=== PATIENT | female | born 1995 | race Caucasian/White ===

== ENCOUNTER → 2017-04-02 | Outpatient (REF) | payer OTHER ==
[2017-04-02 14:54] LABS: INFLUENZA A AMPLIFICATION NEGATIVE (NEGATIVE); INFLUENZA B AMPLIFICATION NEGATIVE (NEGATIVE)
[2017-04-02 18:07] LABS: CONTROL LINE MONO INT CTR LINE PRESENT; MONO SCRN POSITIVE (NEGATIVE)
== END ==
LOC: M LAB REF 13:25
DX: R50.9 Fever, unspecified (principal); J06.9 Acute upper respiratory infection, unspecified

== ENCOUNTER 2017-04-07 14:55 | Emergency (ER) | payer BC, OTHER ==
[2017-04-07] MEDS: dexameTHASONE 20 MG/5 ML VIAL (J1100) IV (15:56)
[2017-04-07] MEDS: NS 1,000 ML IV (15:57)
[2017-04-07 16:08] LABS: HEMATOCRIT 37.5 % (36.0-47.0); HEMOGLOBIN 13.6 g/dl (12.0-16.0); MEAN CORPUSCULAR HEMOGLOBIN 31.3 pg (27.0-33.0); MEAN CORPUSCULAR HGB CONC 36.3 g/dl (32.0-36.5); MEAN CORPUSCULAR VOLUME 86.4 fl (80.0-96.0); PLATELET COUNT, AUTOMATED 128 10^3/uL (150-450); POSITIVE DIFF POS FLAG; POSITIVE MORPH POS FLAG; RED BLOOD COUNT 4.34 10^6/uL (4.00-5.40); RED CELL DISTRIBUTION WIDTH 12.2 % (11.5-14.5); WHITE BLOOD COUNT 12.8 10^3/uL (4.0-10.0)
[2017-04-07 16:10] LABS: ADD MANUAL DIFFER YES; DIFF SLIDE NUMBER 269
[2017-04-07 16:24] LABS: ANION GAP 6 MEQ/L (8-16); BLOOD UREA NITROGEN 5 MG/DL (7-18); C REACTIVE PROTEIN QUANTITATIV 2.38 MG/DL (0.00-0.30); CALCIUM LEVEL 8.8 MG/DL (8.5-10.1); CARBON DIOXIDE LEVEL 27 MEQ/L (21-32); CHLORIDE LEVEL 103 MEQ/L (98-107); CREATININE FOR GFR 0.73 MG/DL (0.55-1.30); GLOMERULAR FILTRATION RATE > 60.0 (>60); GLUCOSE, FASTING 123 MG/DL (70-100); POTASSIUM SERUM 3.8 MEQ/L (3.5-5.1); SODIUM LEVEL 136 MEQ/L (136-145)
[2017-04-07] MEDS ORDERED: ISOVUE-370 76% 100ML VIAL (Q9967) As Ordered (16:32)
[2017-04-07 16:43] LABS: ERYTHROCYTE SEDIMENTATION RATE 30 mm/hr (0-20)
[2017-04-07 16:46] LABS: ATYPICAL LYMPH 27 % (0-5); BANDS 2 % (< 11); LYMPHOCYTES 31 % (16-52); MONOCYTES 7 % (0-8); NEUTROPHILS 33 % (35-75)
[2017-04-07 16:48] LABS: PLATELET CLUMPS SMALL AMT; PLATELET ESTIMATE DECREASED (NORMAL)
== END 2017-04-07 18:23 | disposition home or self-care (01) ==
LOC: M ED 14:55
DX: R60.1 Generalized edema (principal); B27.90 Infectious mononucleosis, unspecified without complication; F41.9 Anxiety disorder, unspecified; Z79.899 Other long term (current) drug therapy
CPT/HCPCS: J1100

== ENCOUNTER 2017-04-12 14:48 | Emergency (ER) | payer BC, OTHER ==
[2017-04-12 15:59] LABS: HEMATOCRIT 39.7 % (36.0-47.0); HEMOGLOBIN 13.8 g/dl (12.0-16.0); MEAN CORPUSCULAR HEMOGLOBIN 30.8 pg (27.0-33.0); MEAN CORPUSCULAR HGB CONC 34.8 g/dl (32.0-36.5); MEAN CORPUSCULAR VOLUME 88.6 fl (80.0-96.0); PLATELET COUNT, AUTOMATED 224 10^3/uL (150-450); RED BLOOD COUNT 4.48 10^6/uL (4.00-5.40); RED CELL DISTRIBUTION WIDTH 12.4 % (11.5-14.5); WHITE BLOOD COUNT 10.8 10^3/uL (4.0-10.0)
[2017-04-12] MEDS: NS 1,000 ML IV (16:00)
[2017-04-12] MEDS: FAMOTIDINE IV BAG 20 MG in APPROPRIATE DILUENT 1 EA IV (16:00)
[2017-04-12] MEDS: methylPREDNISolone INJ 125 MG/2 ML VIAL (J2930) IV (16:00)
[2017-04-12] MEDS: diphenhydrAMINE INJ 50MG/ML VIAL (J1200) IV (16:00)
[2017-04-12] MEDS: ACETAMINOPHEN TAB 650MG DOSE (2X325MG) PO (16:00)
[2017-04-12 16:01] LABS: ADD MANUAL DIFFER YES; DIFF SLIDE NUMBER 260; POSITIVE DIFF POS FLAG; POSITIVE MORPH POS FLAG
[2017-04-12 16:23] LABS: ATYPICAL LYMPH 10 % (0-5); EOSINOPHILS 2 % (0-5); LYMPHOCYTES 35 % (16-52); MONOCYTES 2 % (0-8); NEUTROPHILS 51 % (35-75)
[2017-04-12 16:24] LABS: ALBUMIN 3.5 GM/DL (3.2-5.2); ALBUMIN/GLOBULIN RATIO 0.74 (1.00-1.93); ALKALINE PHOSPHATASE 112 U/L (45-117); ALT/SGPT 77 U/L (12-78); ANION GAP 8 MEQ/L (8-16); AST/SGOT 34 U/L (7-37); BILIRUBIN,DIRECT 0.1 MG/DL (0.0-0.2); BILIRUBIN,TOTAL 0.4 MG/DL (0.2-1.0); BLOOD UREA NITROGEN 11 MG/DL (7-18); CALCIUM LEVEL 8.8 MG/DL (8.5-10.1); CARBON DIOXIDE LEVEL 28 MEQ/L (21-32); CHLORIDE LEVEL 102 MEQ/L (98-107); CREATININE FOR GFR 0.74 MG/DL (0.55-1.30); GLOMERULAR FILTRATION RATE > 60.0 (>60); GLUCOSE, FASTING 93 MG/DL (70-100); PLATELET ESTIMATE NORMAL (NORMAL); POTASSIUM SERUM 3.3 MEQ/L (3.5-5.1); SODIUM LEVEL 138 MEQ/L (136-145); TOTAL PROTEIN 8.2 GM/DL (6.4-8.2)
== END 2017-04-12 17:19 | disposition home or self-care (01) ==
LOC: M ED 14:48
DX: B27.99 Infectious mononucleosis, unspecified with other complication (principal); J35.1 Hypertrophy of tonsils; I10 Essential (primary) hypertension; Z79.52 Long term (current) use of systemic steroids; Z79.2 Long term (current) use of antibiotics; Z79.899 Other long term (current) drug therapy; Z87.09 Personal history of other diseases of the respiratory system
CPT/HCPCS: J1200

== ENCOUNTER → 2019-12-15 | Outpatient (REF) | payer OTHER ==
[~2019-12-15] MED LIST: AMOX875T2 PO; FERR325T3 PO; FLUO10CA16 PO; HYDR25TAB PO; LEVOTAB18 PO; MAGICMW SSP; PRED20TA PO
[2019-12-15 16:49] LABS: TOTAL PROTEIN 7.8 GM/DL (6.4-8.2)
[2019-12-18 10:42] LABS: ALBUMIN 4.26 GM/DL (3.29-5.55); ALBUMIN % 54.6 % (55.8-66.1); ALPHA-1-GLOBULIN % 4.1 % (2.9-4.9); ALPHA-1-GLOBULINS 0.32 GM/DL (0.17-0.41); ALPHA-2-GLOBULINS 0.72 GM/DL (0.42-0.99); ALPHA-2-GLOBULINS % 9.2 % (7.1-11.8); BETA-1-GLOBULINS 0.57 GM/DL (0.28-0.60); BETA-1-GLOBULINS % 7.3 % (4.7-7.2); BETA-2-GLOBULINS 0.41 GM/DL (0.19-0.55); BETA-2-GLOBULINS % 5.3 % (3.2-6.5); GAMMA GLOBULIN % 19.5 % (11.1-18.8); GAMMA GLOBULINS 1.52 GM/DL (0.65-1.58)
== END ==
LOC: M LAB REF 16:18
PROVIDERS: ATTEND Nurse Practitioner Adult Health
DX: I12.9 Hypertensive chronic kidney disease with stage 1 through stage 4 chronic kidney disease, or unspecified chronic kidney disease (principal)

== ENCOUNTER → 2023-03-02 | Outpatient (CLI) | payer BC ==
[~2023-03-02] MED LIST changes: -FLUO10CA16 PO; +FLUO10CA18 PO; +HYDR-3490 PO; -HYDR25TAB PO
[2023-03-02 13:50] LABS: HEMATOCRIT 37.7 % (36.0-47.0); HEMOGLOBIN 12.7 g/dl (12.0-15.5); MEAN CORPUSCULAR HGB CONC 33.7 g/dl (32.0-36.5); MEAN CORPUSCULAR VOLUME 88.9 fl (80.0-96.0); PLATELET COUNT, AUTOMATED 292 10^3/uL (150-450); RED BLOOD COUNT 4.24 10^6/uL (4.00-5.40); WHITE BLOOD COUNT 11.9 10^3/uL (4.0-10.0)
[2023-03-02 13:58] LABS: ALT/SGPT 25 U/L (7.0-40); AST/SGOT 20 U/L (<34); BILIRUBIN,TOTAL 0.4 MG/DL (0.3-1.2); CREATININE FOR GFR 0.56 MG/DL (0.55-1.30); GLOMERULAR FILTRATION RATE > 60.0 (>60); LDH LACTATE DEHYDROGENASE 207 U/L (120-246)
[2023-03-02 14:18] LABS: CREATININE,RANDOM URINE 53.8 MG/DL
[2023-03-02 14:19] LABS: TOTAL PROTEIN,RANDOM URINE < 6.0 MG/DL (0.0-14.0)
[2023-03-02 14:31] LABS: HIV 1&2 SCREEN NEGATIVE (NEGATIVE)
[2023-03-02 14:40] LABS: HEPATITIS C VIRUS ABY INDEX 0.03 INDEX (<0.8)
[2023-03-02 15:25] LABS: CHLAMYDIA DNA AMPLIFICATION NEGATIVE (NEGATIVE); GC DNA AMPLIFICATION NEGATIVE (NEGATIVE)
[2023-03-02 16:50] LABS: URIC ACID 5.3 MG/DL (3.1-7.8)
== END ==
LOC: M PLALAB 10:37
PROVIDERS: ATTEND Advanced Practice Midwife
DX: O10.011 Pre-existing essential hypertension complicating pregnancy, first trimester (principal); Z3A.00 Weeks of gestation of pregnancy not specified

== ENCOUNTER → 2023-03-31 | Outpatient (CLI) | payer BC | LOC: M PLALAB 08:30 | PROVIDERS: ATTEND Specialist | DX: Z34.82 Encounter for supervision of other normal pregnancy, second trimester (principal); Z3A.00 Weeks of gestation of pregnancy not specified ==

== ENCOUNTER → 2023-04-23 | Outpatient (CLI) | payer BC | LOC: M PLALAB 09:43 | PROVIDERS: ATTEND Advanced Practice Midwife | DX: Z34.82 Encounter for supervision of other normal pregnancy, second trimester (principal) ==

== ENCOUNTER → 2023-04-23 | Outpatient (CLI) | payer BC | LOC: M WHC 09:13 | PROVIDERS: ATTEND Advanced Practice Midwife | DX: Z53.9 Procedure and treatment not carried out, unspecified reason (principal) ==

== ENCOUNTER → 2023-05-11 | Outpatient (CLI) | payer BC | LOC: M WHC 07:54 | PROVIDERS: ATTEND Advanced Practice Midwife | DX: O10.012 Pre-existing essential hypertension complicating pregnancy, second trimester (principal); Z3A.19 19 weeks gestation of pregnancy; O32.1XX0 Maternal care for breech presentation, not applicable or unspecified ==

== ENCOUNTER → 2023-06-04 | Outpatient (CLI) | payer BC | LOC: M WHC 07:42 | PROVIDERS: ATTEND Advanced Practice Midwife | DX: Z34.02 Encounter for supervision of normal first pregnancy, second trimester (principal) ==

== ENCOUNTER → 2023-06-25 | Outpatient (CLI) | payer BC ==
[~2023-06-25] MED LIST changes: +FLUO-290 PO; -FLUO10CA18 PO
[2023-06-25 12:45] LABS: ALKALINE PHOSPHATASE 91 U/L (46-116); ALT/SGPT 48 U/L (7.0-40); AST/SGOT 38 U/L (<34); BILIRUBIN,TOTAL 0.3 MG/DL (0.3-1.2); BLOOD UREA NITROGEN 7 MG/DL (9-23); CALCIUM LEVEL 9.7 MG/DL (8.5-10.1); CARBON DIOXIDE LEVEL 26 MMOL/L (20-31); CHLORIDE LEVEL 106 MMOL/L (98-107); CREATININE FOR GFR 0.68 MG/DL (0.55-1.30); GLOMERULAR FILTRATION RATE > 60.0 (>60); GLUCOSE, FASTING 82 MG/DL (60-100); SODIUM LEVEL 140 MMOL/L (136-145); TOTAL PROTEIN 6.8 G/DL (5.7-8.2)
[2023-06-25 13:07] LABS: CREATININE,RANDOM URINE 23.6 MG/DL
[2023-06-25 13:12] LABS: TOTAL PROTEIN,RANDOM URINE < 6.0 MG/DL (0.0-14.0)
== END ==
LOC: M PLALAB 10:18
PROVIDERS: ATTEND Obstetrics & Gynecology
DX: O10.012 Pre-existing essential hypertension complicating pregnancy, second trimester (principal)

== ENCOUNTER → 2023-06-29 | Outpatient (CLI) | payer BC ==
[2023-06-29 13:50] LABS: HEMATOCRIT 30.3 % (36.0-47.0); HEMOGLOBIN 9.8 g/dl (12.0-15.5); MEAN CORPUSCULAR HGB CONC 32.3 g/dl (32.0-36.5); MEAN CORPUSCULAR VOLUME 95.9 fl (80.0-96.0); PLATELET COUNT, AUTOMATED 293 10^3/uL (150-450); RED BLOOD COUNT 3.16 10^6/uL (4.00-5.40); WHITE BLOOD COUNT 13.4 10^3/uL (4.0-10.0)
[2023-06-29 13:52] LABS: ALKALINE PHOSPHATASE 89 U/L (46-116); ALT/SGPT 35 U/L (7.0-40); AST/SGOT 32 U/L (<34); BILIRUBIN,TOTAL 0.3 MG/DL (0.3-1.2); BLOOD UREA NITROGEN 5 MG/DL (9-23); CALCIUM LEVEL 9.1 MG/DL (8.5-10.1); CARBON DIOXIDE LEVEL 25 MMOL/L (20-31); CHLORIDE LEVEL 107 MMOL/L (98-107); CREATININE FOR GFR 0.65 MG/DL (0.55-1.30); GLOMERULAR FILTRATION RATE > 60.0 (>60); GLUCOSE, FASTING 83 MG/DL (60-100); POTASSIUM SERUM 3.8 MMOL/L (3.5-5.1); SODIUM LEVEL 139 MMOL/L (136-145); TOTAL PROTEIN 6.6 G/DL (5.7-8.2)
[2023-06-29 14:03] LABS: CREATININE,RANDOM URINE 28.2 MG/DL
[2023-06-29 14:08] LABS: TOTAL PROTEIN,RANDOM URINE < 6.0 MG/DL (0.0-14.0)
== END ==
LOC: M PLALAB 10:48
PROVIDERS: ATTEND Obstetrics & Gynecology
DX: O10.919 Unspecified pre-existing hypertension complicating pregnancy, unspecified trimester (principal)

== ENCOUNTER → 2023-07-06 | Outpatient (CLI) | payer BC ==
[2023-07-06 12:13] LABS: MEAN CORPUSCULAR HEMOGLOBIN 31.6 pg (27.0-33.0); MEAN CORPUSCULAR HGB CONC 32.1 g/dl (32.0-36.5); MEAN CORPUSCULAR VOLUME 98.2 fl (80.0-96.0); PLATELET COUNT, AUTOMATED 242 10^3/uL (150-450); RED BLOOD COUNT 2.85 10^6/uL (4.00-5.40); WHITE BLOOD COUNT 11.8 10^3/uL (4.0-10.0)
== END ==
LOC: M PLALAB 08:06
PROVIDERS: ATTEND Advanced Practice Midwife
DX: Z34.02 Encounter for supervision of normal first pregnancy, second trimester (principal)

== ENCOUNTER → 2023-08-06 | Outpatient (CLI) | payer BC ==
[2023-08-06 11:15] LABS: HEMATOCRIT 29.7 % (36.0-47.0); HEMOGLOBIN 9.8 g/dl (12.0-15.5); MEAN CORPUSCULAR HEMOGLOBIN 33.1 pg (27.0-33.0); MEAN CORPUSCULAR VOLUME 100.3 fl (80.0-96.0); PLATELET COUNT, AUTOMATED 225 10^3/uL (150-450); RED BLOOD COUNT 2.96 10^6/uL (4.00-5.40); WHITE BLOOD COUNT 11.9 10^3/uL (4.0-10.0)
== END ==
LOC: M PLALAB 08:18
PROVIDERS: ATTEND Advanced Practice Midwife
DX: O99.019 Anemia complicating pregnancy, unspecified trimester (principal)

== ENCOUNTER 2023-08-16 12:58 | Outpatient (CLI) | payer BC ==
[~2023-08-16] VITALS: Ht 170.2 cm; Wt 101.2 kg
[2023-08-16] MEDS ORDERED: LABE300T28 PO (13:16)
[2023-08-16] MEDS ORDERED: BUSP5TA PO (13:19)
[2023-08-16 13:22] VITALS: BP 114/76
[2023-08-16 13:50] VITALS: BP 126/72
[2023-08-16] MEDS ORDERED: HOME MED LIST COMPLETE! XX SCH (14:35)
[2023-08-16 15:11] VITALS: BP 135/91
== END 2023-08-16 15:30 | disposition home or self-care (01) ==
LOC: M LDO 12:58
PROVIDERS: ATTEND Advanced Practice Midwife
DX: O36.8332 Maternal care for abnormalities of the fetal heart rate or rhythm, third trimester, fetus 2 (principal); O10.013 Pre-existing essential hypertension complicating pregnancy, third trimester; O99.343 Other mental disorders complicating pregnancy, third trimester; F41.9 Anxiety disorder, unspecified; O99.013 Anemia complicating pregnancy, third trimester; E50.9 Vitamin A deficiency, unspecified; Z3A.32 32 weeks gestation of pregnancy
CPT/HCPCS: 59025; 76816; 76819; 76820; G0463

== ENCOUNTER 2023-08-24 10:36 | Outpatient (CLI) | payer BC ==
[~2023-08-24] VITALS: Ht 170.2 cm; Wt 103.1 kg
[~2023-08-24 10:36] MED LIST changes: +BUSP5TA PO; +LABE300T28 PO
[2023-08-24] MEDS ORDERED: PRENTAB9 PO (11:14)
[2023-08-24] MEDS ORDERED: HOME MED LIST COMPLETE! XX SCH (11:20)
[2023-08-24] MEDS ORDERED: IRON SUCROSE 100MG 5ML VIAL IV SCH (11:40)
[2023-08-24 11:43] VITALS: BP 122/64
[2023-08-24] MEDS: IRON SUCROSE 100 MG in NS 95 ML IV ONE (12:37)
[2023-08-24 12:41] VITALS: BP 141/78
== END 2023-08-24 15:14 | disposition home or self-care (01) ==
LOC: M LDO 10:36
PROVIDERS: ATTEND Specialist
DX: O10.013 Pre-existing essential hypertension complicating pregnancy, third trimester (principal); O36.8339 Maternal care for abnormalities of the fetal heart rate or rhythm, third trimester, other fetus; O99.013 Anemia complicating pregnancy, third trimester; D50.9 Iron deficiency anemia, unspecified; Z3A.34 34 weeks gestation of pregnancy
CPT/HCPCS: 59025; 76815; 76819; 76820; G0463; J1756

== ENCOUNTER → 2023-08-30 | Outpatient (CLI) | payer BC ==
[~2023-08-30] MED LIST changes: +PRENTAB9 PO
== END ==
LOC: M WHC 09:29
PROVIDERS: ATTEND Obstetrics & Gynecology
DX: O10.913 Unspecified pre-existing hypertension complicating pregnancy, third trimester (principal)

== ENCOUNTER → 2023-09-06 | Outpatient (REF) | payer BC | LOC: M SFHCWAGY 10:00 | PROVIDERS: ATTEND Obstetrics & Gynecology | DX: Z3A.35 35 weeks gestation of pregnancy (principal) ==

== ENCOUNTER → 2023-09-06 | Outpatient (CLI) | payer BC | LOC: M WHC 07:22 | PROVIDERS: ATTEND Obstetrics & Gynecology | DX: O10.913 Unspecified pre-existing hypertension complicating pregnancy, third trimester (principal); Z3A.35 35 weeks gestation of pregnancy ==

== ENCOUNTER → 2023-09-09 | Outpatient (CLI) | payer BC ==
[~2023-09-09] MED LIST changes: +ACET-683 PO; +COLA100C5 PO; +IBUP-1022 PO; +OXYC-517 PO
== END ==
LOC: M RAD 08:09
PROVIDERS: ATTEND Obstetrics & Gynecology
DX: O10.913 Unspecified pre-existing hypertension complicating pregnancy, third trimester (principal); Z3A.36 36 weeks gestation of pregnancy

== ENCOUNTER 2023-09-14 07:30 | Inpatient (IN) | payer BC ==
[~2023-09-14] VITALS: Ht 167.6 cm; Wt 105.0 kg
[2023-09-14] VITALS (12 sets, daily range): BP systolic 134–149; BP diastolic 69–93
[~2023-09-14 07:30] MED LIST changes: -ACET-683 PO; -COLA100C5 PO; -IBUP-1022 PO; -OXYC-517 PO
[2023-09-14] MEDS ORDERED: PENICILLIN G POTASSIUM 5 MU IV 5 MU in D5W MINI-BAG PLUS 100 ML IV STA (08:02)
[2023-09-14] MEDS ORDERED: OXYTOCIN DRIP 30 UNITS in IV 1 EA IV PRN (08:05)
[2023-09-14] MEDS ORDERED: CARBOPROST TROMETHAMINE 250 MCG/ML AMP IM PRN (08:05)
[2023-09-14] MEDS ORDERED: TRANEXAMIC ACID INJection 1,000 MG in NS 100 ML IV PRN (08:05)
[2023-09-14] MEDS ORDERED: LIDOCAINE 1% MDV 20ML VIAL INFIL PRN (08:05)
[2023-09-14 08:38] LABS: HEMATOCRIT 29.8 % (36.0-47.0); HEMOGLOBIN 10.1 g/dl (12.0-15.5); MEAN CORPUSCULAR HEMOGLOBIN 34.4 pg (27.0-33.0); MEAN CORPUSCULAR HGB CONC 33.9 g/dl (32.0-36.5); MEAN CORPUSCULAR VOLUME 101.4 fl (80.0-96.0); PLATELET COUNT, AUTOMATED 210 10^3/uL (150-450); RED BLOOD COUNT 2.94 10^6/uL (4.00-5.40); WHITE BLOOD COUNT 10.3 10^3/uL (4.0-10.0)
[2023-09-14] MEDS: miSOPROStol 50MCG 1/2 TABLET PO SCH (08:53)
[2023-09-14 08:57] LABS: URIC ACID 5.8 MG/DL (3.1-7.8)
[2023-09-14 08:59] LABS: LDH LACTATE DEHYDROGENASE 227 U/L (120-246)
[2023-09-14 09:00] LABS: ALT/SGPT 20 U/L (7.0-40); AST/SGOT 31 U/L (<34); BILIRUBIN,TOTAL 0.4 MG/DL (0.3-1.2); CREATININE FOR GFR 0.72 MG/DL (0.55-1.30); GLOMERULAR FILTRATION RATE > 60.0 (>60)
[2023-09-14 09:39] LABS: HEPATITIS C VIRUS ABY INDEX < 0.02 INDEX (<0.8)
[2023-09-14] MEDS ORDERED: PEN G POT 3,000,000 UNIT/50 ML 3,000,000 UNIT in IV 1 EA IV SCH (12:05)
[2023-09-14] MEDS: LABETALOL 100MG TAB PO SCH (16:16)
[2023-09-14] MEDS: busPIRone 10 MG TAB PO SCH (16:41)
[2023-09-14] MEDS: FERROUS SULFATE 325MG TAB PO SCH (21:56)
[2023-09-15] VITALS (21 sets, daily range): BP systolic 116–148; BP diastolic 62–86; TEMP 97.9; O2SAT 94–95
[2023-09-15] MEDS: LR 1,000 ML IV SCH (09:52)
[2023-09-15] MEDS: OXYTOCIN DRIP 30 UNITS in IV 1 EA IV SCH ×2 (10:27→21:26)
[2023-09-15] MEDS: PENICILLIN G POTASSIUM 5 MU IV 5 MU in D5W MINI-BAG PLUS 100 ML IV STA (14:07)
[2023-09-15] MEDS ORDERED: PEN G POT 3,000,000 UNIT/50 ML 3,000,000 UNIT in IV 1 EA IV SCH (18:00)
[2023-09-15] MEDS: AZITHROMYCIN INJ 500 MG, VIAL MATE ADAPTER 1 EACH in NS 250 ML IV ONE (18:50)
[2023-09-15] MEDS: BICITRA 30ML SOLN UDC PO ONE (19:09)
[2023-09-15] MEDS: LACTATED RINGER'S 1000 ML IV STA (19:10)
[2023-09-15] MEDS: ceFAZolin SOD 2 GM in IV 1 EA IV ONE (19:10)
[2023-09-15] MEDS ORDERED: ONDANSETRON 4MG 2ML VIAL As Ordered ONE (19:33)
[2023-09-15] MEDS ORDERED: KETOROLAC 60MG 2ML VIAL As Ordered ONE (19:33)
[2023-09-15] MEDS ORDERED: MORPHINE PRES-FREE INJ 10 MG/10 ML VIAL As Ordered ONE (19:34)
[2023-09-15] MEDS ORDERED: OXYTOCIN 30UNITS IN 0.9% NaCl 500ML IV BAG As Ordered ONE (19:54)
[2023-09-15] MEDS ORDERED: ACETAMINOPHEN 1000MG 100ML IV BAG As Ordered ONE (19:54)
[2023-09-15] MEDS ORDERED: ePHEDrine SULFATE 25 MG/5 ML(5MG/ML) SYRINGE As Ordered ONE (19:54)
[2023-09-15] MEDS ORDERED: NALOXONE INJ 0.4MG/1ML VIAL IV PRN ×2 (20:10)
[2023-09-15] MEDS ORDERED: METOCLOPRAMIDE INJ 10MG/2ML VIAL IV PRN ×2 (20:10→21:10)
[2023-09-15] MEDS ORDERED: diphenhydrAMINE 50MG/ML VIAL IV PRN (20:10)
[2023-09-15] MEDS ORDERED: oxyCODONE 5MG TAB PO PRN ×3 (20:10→21:10)
[2023-09-15] MEDS ORDERED: LR 1,000 ML IV SCH (20:10)
[2023-09-15] MEDS ORDERED: SLF 3 ML SYR IV SCH (20:10)
[2023-09-15] MEDS ORDERED: **NOTE PATIENT COMMENT** MISC XX SCH (20:10)
[2023-09-15] MEDS ORDERED: ONDANSETRON 4MG 2ML VIAL IV PRN ×2 (20:10→21:10)
[2023-09-15] MEDS: ACETAMINOPHEN 500 MG TAB PO SCH (21:10)
[2023-09-15] MEDS ORDERED: SIMETHICONE 80MG CHEW TAB PO PRN (21:10)
[2023-09-15] MEDS ORDERED: RHO(D) IMMUNE GLOBULIN/MALTOSE 500MCG(2500IU)/2.2ML VIAL (WINRHO) IM SCH (21:10)
[2023-09-15] MEDS ORDERED: OXYC-517 PO (21:17)
[2023-09-15] MEDS ORDERED: IBUP-1022 PO (21:17)
[2023-09-15] MEDS ORDERED: COLA100C5 PO (21:17)
[2023-09-15] MEDS ORDERED: ACET-683 PO (21:17)
[2023-09-15 23:34] LABS: ALBUMIN 2.4 G/DL (3.2-5.2); ALKALINE PHOSPHATASE 113 U/L (46-116); ALT/SGPT 20 U/L (7.0-40); AST/SGOT 29 U/L (<34); BILIRUBIN,TOTAL 0.6 MG/DL (0.3-1.2); BLOOD UREA NITROGEN 6 MG/DL (9-23); CALCIUM LEVEL 8.5 MG/DL (8.5-10.1); CARBON DIOXIDE LEVEL 23 MMOL/L (20-31); CHLORIDE LEVEL 109 MMOL/L (98-107); CREATININE FOR GFR 0.74 MG/DL (0.55-1.30); GLOMERULAR FILTRATION RATE > 60.0 (>60); GLUCOSE, FASTING 96 MG/DL (60-100); POTASSIUM SERUM 3.8 MMOL/L (3.5-5.1); SODIUM LEVEL 141 MMOL/L (136-145); TOTAL PROTEIN 5.4 G/DL (5.7-8.2)
[2023-09-16] VITALS (8 sets, daily range): BP systolic 97–140; BP diastolic 53–82; O2SAT 95–97
[2023-09-16] MEDS: LR 1,000 ML IV SCH (01:02)
[2023-09-16] MEDS: KETOROLAC 30 MG/ML 1ML VIAL IV SCH (02:33)
[2023-09-16] MEDS: DOCUSATE SODIUM 100MG CAPSULE PO PRN (08:04)
[2023-09-16] MEDS: PRENATAL VITAMINS CHEWABLE TABLET PO SCH (08:05)
[2023-09-16 08:33] LABS: HEMATOCRIT 27.3 % (36.0-47.0); HEMOGLOBIN 9.4 g/dl (12.0-15.5); MEAN CORPUSCULAR HEMOGLOBIN 35.2 pg (27.0-33.0); MEAN CORPUSCULAR HGB CONC 34.4 g/dl (32.0-36.5); MEAN CORPUSCULAR VOLUME 102.2 fl (80.0-96.0); PLATELET COUNT, AUTOMATED 210 10^3/uL (150-450); RED BLOOD COUNT 2.67 10^6/uL (4.00-5.40); WHITE BLOOD COUNT 15.4 10^3/uL (4.0-10.0)
[2023-09-16] MEDS: IBUPROFEN 600MG TAB PO SCH (21:44)
[2023-09-17 02:30] VITALS: BP 147/83; O2SAT 94
[2023-09-17 06:00] VITALS: BP 130/74; O2SAT 99
[2023-09-17] MEDS: MEASLES,MUMPS,RUBELLA VACCINE INJ (MMR-II) SC.IMMUN ONE (07:26)
[2023-09-17 08:18] VITALS: BP 145/79
[2023-09-17 10:00] VITALS: BP 130/66; O2SAT 95
== END 2023-09-17 14:45 | disposition home or self-care (01) | DRG 540 ==
LOC: M LDI 07:30 → M OBS 09-15 23:10
PROVIDERS: ADMIT Obstetrics & Gynecology; ATTEND Obstetrics & Gynecology
PROC: 3E097GC Introduction of Other Therapeutic Substance into Nose, Via Natural or Artificial Opening (ICD-10-PCS; 2023-09-14)
PROC: 10D00Z1 Extraction of Products of Conception, Low, Open Approach (ICD-10-PCS; principal; 2023-09-15 18:00)
DX: O10.02 Pre-existing essential hypertension complicating childbirth (principal); O99.824 Streptococcus B carrier state complicating childbirth; Z3A.37 37 weeks gestation of pregnancy; O61.0 Failed medical induction of labor; O76 Abnormality in fetal heart rate and rhythm complicating labor and delivery; Z37.0 Single live birth; Z79.899 Other long term (current) drug therapy; Z91.018 Allergy to other foods

== ENCOUNTER → 2024-10-02 | Outpatient (REF) | payer BC ==
[~2024-10-02] MED LIST changes: +ACET-683 PO; +COLA100C5 PO; +IBUP-1022 PO; +OXYC-517 PO
[2024-10-02 15:26] LABS: APPEARANCE, URINE TURBID (CLEAR); BACTERIA, URINE AUTO NEGATIVE (NEGATIVE); BILIRUBIN, URINE AUTO NEGATIVE (NEGATIVE); BLOOD, URINE BLOOD 3+ (NEGATIVE); CALCIUM OXALATE CRYSTALS SMALL; GLUCOSE, URINE (UA) AUTO NEGATIVE (NEGATIVE); KETONE, URINE AUTO NEGATIVE (NEGATIVE); LEUKOCYTE ESTERASE, URINE AUTO NEGATIVE (NEGATIVE); MUCUS, URINE SMALL (NEGATIVE); NITRITE, URINE AUTO NEGATIVE (NEGATIVE); PROTEIN, URINE AUTO 2+ mg/dL (NEGATIVE); RBC, URINE AUTO TNTC /HPF (0-3); SPECIFIC GRAVITY URINE AUTO 1.028 (1.002-1.035); SQUAMOUS EPITHELIAL CELL UR AU 1 /HPF (0-6); UROBILINOGEN, URINE AUTO 0.2 mg/dL (0.0-2.0); WBC, URINE AUTO 2 /HPF (0-3)
== END ==
LOC: M SFHCWAGY 14:55
PROVIDERS: ATTEND Nurse Practitioner Family
DX: R30.0 Dysuria (principal)

== ENCOUNTER → 2024-10-05 | Outpatient (CLI) | payer BC ==
[2024-10-05 10:54] LABS: BASO # 0.0 10^3/uL (0.0-0.2); BASO % 0.4 % (0.0-1.0); EOS # 0.1 10^3/uL (0.0-0.5); EOS % 0.7 % (0.0-3.0); LYMPH # 1.8 10^3/uL (1.5-5.0); LYMPH % 21.4 % (24.0-44.0); MONO # 0.4 10^3/uL (0.0-0.8); MONO % 5.2 % (2.0-8.0); NEUTROPHILS # 6.0 10^3/uL (1.5-8.5); NEUTROPHILS % 71.9 % (36.0-66.0); PLATELET COUNT, AUTOMATED 341 10^3/uL (150-450)
[2024-10-05 11:37] LABS: FREE T4 1.29 NG/DL (0.89-1.76)
[2024-10-05 11:38] LABS: IRON (FE) 18.0 UG/DL (50-170); PERCENT SATURATION 4.6 % (13.2-45.0)
== END ==
LOC: M PLALAB 08:55
PROVIDERS: ATTEND Nurse Practitioner Family
DX: R30.0 Dysuria (principal); D50.9 Iron deficiency anemia, unspecified; N92.0 Excessive and frequent menstruation with regular cycle

== ENCOUNTER 2024-10-31 11:58 | Outpatient (CLI) | payer BC ==
[~2024-10-31] VITALS: Ht 170.2 cm; Wt 100.0 kg
[~2024-10-31 11:58] MED LIST changes: +ALBUTEROL SULFATE 2.5 MG/0.5 ML INH CONCENTRATE NEB SOLN INH PRN; +EPINEPHrine INJ 1 MG/ML 1ML AMP IM PRN; -IBUP-1022 PO; +IBUP600T42 PO; +diphenhydrAMINE 50 MG/ML VIAL IV PRN
[2024-10-31 12:20] VITALS: BP 147/88; O2SAT 100
[2024-10-31] MEDS: ACETAMINOPHEN 650 MG PO ONE (12:26)
[2024-10-31] MEDS: FERRIC CARBOXYMALTOSE 750 MG (VIAL MATE) IN 100ML NS IV ONE (12:46)
[2024-10-31 13:19] VITALS: BP 141/81; O2SAT 100
== END 2024-10-31 13:20 ==
LOC: M INFU 11:58
PROVIDERS: ATTEND Nurse Practitioner Family
DX: D64.9 Anemia, unspecified (principal)
CPT/HCPCS: 96365; J1439

== ENCOUNTER 2024-11-07 12:15 | Outpatient (CLI) | payer BC ==
[~2024-11-07] VITALS: Ht 170.2 cm; Wt 100.0 kg
[2024-11-07] MEDS: ACETAMINOPHEN 650 MG PO ONE (12:37)
[2024-11-07] MEDS: FERRIC CARBOXYMALTOSE 750 MG (VIAL MATE) IN 100ML NS IV ONE (12:57)
[2024-11-07 13:30] VITALS: BP 134/80; O2SAT 98
== END 2024-11-07 13:30 | disposition home or self-care (01) ==
LOC: M INFU 12:15
PROVIDERS: ATTEND Nurse Practitioner Family
DX: D64.9 Anemia, unspecified (principal); Z91.018 Allergy to other foods; Z91.09 Other allergy status, other than to drugs and biological substances
CPT/HCPCS: 96365; J1439